=== PATIENT | female | born 1985 | race Caucasian/White ===

== ENCOUNTER 2017-02-15 20:28 | Emergency (ER) | payer SELFPAY ==
[~2017-02-15] VITALS: Ht 160 cm; Wt 56.3 kg
[~2017-02-15 20:28] MED LIST: FLAG250T PO; TRAM100T19 PO
[2017-02-15 20:31] VITALS: BP 115/59; PULSE 77; RESP 16; TEMP 97.5; O2SAT 98
[2017-02-15] MEDS ORDERED: SULFAMETHOXAZOLE-TRIMETHOPRIM 400-80 MG TAB PO ONE (20:45)
[2017-02-15] MEDS ORDERED: BACT800T5 PO (20:50)
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
[2017-02-15] MEDS ORDERED: SULFAMETHOXAZOLE-TRIMETHOPRIM DS 800-160 MG TAB PO ONE (21:00)
== END 2017-02-15 20:56 | disposition home or self-care (01) ==
LOC: PHEFT 20:28
DX: L02.31 Cutaneous abscess of buttock (principal); I10 Essential (primary) hypertension; F20.9 Schizophrenia, unspecified; F31.9 Bipolar disorder, unspecified; F17.210 Nicotine dependence, cigarettes, uncomplicated; Z79.899 Other long term (current) drug therapy
CPT/HCPCS: 99283

== ENCOUNTER 2017-06-23 17:26 | Emergency (ER) | payer SELFPAY ==
[~2017-06-23] VITALS: Ht 160 cm; Wt 60.1 kg
[~2017-06-23 17:26] MED LIST changes: +BACT800T5 PO; -FLAG250T PO; -TRAM100T19 PO
[2017-06-23 17:40] VITALS: BP 113/60; PULSE 82; RESP 16; TEMP 98.9; O2SAT 98
== END 2017-06-23 20:41 | disposition left against medical advice (07) ==
LOC: PHED 17:26
DX: R11.0 Nausea (principal); R10.9 Unspecified abdominal pain
CPT/HCPCS: 99281